=== PATIENT | female | born 1960 | race Caucasian/White ===

== ENCOUNTER → 2016-12-09 | Outpatient (CLI) | payer OTHER | LOC: MC.RAD 08:40 | DX: Z12.31 Encounter for screening mammogram for malignant neoplasm of breast (principal) ==

== ENCOUNTER → 2017-02-27 | Outpatient (CLI) | payer OTHER | LOC: COL.RAD 10:00 | DX: K59.09 Other constipation (principal) ==

== ENCOUNTER 2017-03-10 08:30 | Outpatient (RCR) | payer OTHER | END 2017-04-05 | LOC: MKS.ESL.PT | DX: N81.89 Other female genital prolapse (principal); M53.3 Sacrococcygeal disorders, not elsewhere classified | CPT/HCPCS: G0283-GP ==

== ENCOUNTER 2017-06-26 10:45 | Outpatient (RCR) | payer OTHER | END 2017-09-03 | disposition home or self-care (01) | LOC: MKS.ESL.PT | DX: N81.84 Pelvic muscle wasting (principal); M53.3 Sacrococcygeal disorders, not elsewhere classified ==

== ENCOUNTER → 2018-01-26 | Outpatient (CLI) | payer OTHER | LOC: MC.RAD 11:20 | DX: Z12.31 Encounter for screening mammogram for malignant neoplasm of breast (principal) ==

== ENCOUNTER → 2019-04-11 | Outpatient (CLI) | payer OTHER | LOC: MC.RAD 09:45 | DX: Z12.31 Encounter for screening mammogram for malignant neoplasm of breast (principal) ==

== ENCOUNTER → 2020-05-01 | Outpatient (CLI) | payer OTHER | LOC: MC.RAD 11:45 | DX: Z12.31 Encounter for screening mammogram for malignant neoplasm of breast (principal) ==

== ENCOUNTER 2020-06-28 10:30 | Outpatient (RCR) | payer OTHER | END 2020-07-02 | LOC: WSPT | DX: M25.561 Pain in right knee (principal) ==

== ENCOUNTER 2020-09-19 12:26 | Outpatient (CLI) | payer OTHER ==
[2020-09-19] VITALS (7 sets, daily range): BP systolic 107–116; BP diastolic 67–75; PULSE 71–85; TEMP 97.8
[~2020-09-19] VITALS: Ht 167.6 cm; Wt 76.0 kg
[2020-09-19] MEDS ORDERED: ESTRADERM0.05 MG/24 TD (13:03)
[2020-09-19] MEDS ORDERED: SYNTHROID0.075 MG/T PO (13:03)
[2020-09-19] MEDS ORDERED: MASON NATURAL2000 IU PO (13:04)
[2020-09-19] MEDS ORDERED: MAXZIDE 50 MG-71 TAB PO (13:04)
[2020-09-19] MEDS ORDERED: MOTRIN 600600 MG/TAB PO (13:05)
[2020-09-19] MEDS ORDERED: VITAMIN C500 MG PO (13:06)
[2020-09-19] MEDS ORDERED: PHARMASSURE CHE30 MG PO (13:06)
--- NOTE | 2020-09-19 14:45 | NUR ---
PT TOLERATED BAM INFUSION WITH NO PROBLEM. SHE IS AMBULATORY TO EXIT [facility].
== END 2020-09-19 14:46 | disposition home or self-care (01) ==
LOC: EUO 12:26
DX: Z23 Encounter for immunization (principal); U07.1 COVID-19

== ENCOUNTER 2021-04-07 10:50 | Emergency (ER) | payer OTHER ==
[~2021-04-07] VITALS: Ht 167.6 cm; Wt 73.6 kg
[~2021-04-07 10:50] MED LIST: ESTRADERM0.05 MG/24 TD; MASON NATURAL2000 IU PO; MAXZIDE 50 MG-71 TAB PO; MOTRIN 600600 MG/TAB PO; PHARMASSURE CHE30 MG PO; SYNTHROID0.075 MG/T PO; VITAMIN C500 MG PO
[2021-04-07 11:00] VITALS: BP 127/80; TEMP 97.9
[2021-04-07] MEDS ORDERED: ULTRAM 50MG TAB50 MG (11:08)
[2021-04-07] MEDS ORDERED: LIORESAL 1010 MG/TAB PO (12:05)
[2021-04-07] MEDS ORDERED: NAPROSYN500 MG PO (12:05)
[2021-04-07 12:28] VITALS: PULSE 78
== END 2021-04-07 12:29 | disposition home or self-care (01) ==
LOC: COL.ER 10:50
DX: M54.41 Lumbago with sciatica, right side (principal); I10 Essential (primary) hypertension; E07.9 Disorder of thyroid, unspecified; Z87.39 Personal history of other diseases of the musculoskeletal system and connective tissue; Z88.8 Allergy status to other drugs, medicaments and biological substances; Z79.890 Hormone replacement therapy
CPT/HCPCS: J1885

== ENCOUNTER → 2021-05-14 | Outpatient (CLI) | payer OTHER ==
[~2021-05-14] MED LIST changes: +LIORESAL 1010 MG/TAB PO; +NAPROSYN500 MG PO; +ULTRAM 50MG TAB50 MG
== END ==
LOC: MC.RAD 14:30
DX: Z12.31 Encounter for screening mammogram for malignant neoplasm of breast (principal)

== ENCOUNTER → 2024-04-21 | Outpatient (CLI) | payer OTHER ==
[~2024-04-21] MED LIST changes: +CLARITIN 1010 MG/TAB PO; +CYMBALTA 20MG20 MG PO; +ESTROGEL0.06% TOP; +LINZESS72 MCG PO; +MIRALAX PA17 GM/Dose PO; +MOUNJARO2.5 MG/0.5 SQ
== END ==
LOC: MC.RAD 09:29
DX: Z12.31 Encounter for screening mammogram for malignant neoplasm of breast (principal)